=== PATIENT | male | born 1980 | race Caucasian/White ===

== ENCOUNTER 2017-09-14 15:47 | Inpatient (IN) ==
--- NOTE | 2017-09-14 16:20 | Emergency Department Note ---
Disposition Clinical Impression: Anemia Qualifiers: Anemia type: unspecified type Qualified Code(s): D64.9 - Anemia, unspecified Disposition: Admitted As Inpatient Condition: Fair Arrhythmia/Palpitations HPI - General Chief Complaint: ED Arrhythmia/Palpitations Stated Complaint: High heart rate Time Seen by Provider: 09/14/17 16:03 Source: patient Mode of arrival: ambulatory Limitations: no limitations Nursing Notes Reviewed: Yes Vital Signs Reviewed: Yes - History of Present Illness HPI Narrative: Pt is a 37 year old male with no significant past medical history presents with a complaint of palpitations. He reports that he has been experiencing rapid heart rate, palpitations, diaphoresis, dyspnea intermittently which seems to occur while walking. He has no previous history of this. Never had a cardiac workup. He denies chest pain, nausea, vomiting, changes in bowel movements but does admit to lightheadedness immediately after rising from a chair which resolves after a couple seconds. No family history of heart problems. He is currently asymptomatic at time of interview. Denies stimulant use, former smoker , alcohol use. He currently complains of a sinus infection. Pt Subjective Complaint: rapid heart beat, palpitations Onset (ago): week(s) Duration: intermittent Context: occurred during exertion Associated symptoms: Reports: shortness of breath. Denies: chest pain, near- syncope, nausea, vomiting, anxiety - Related Data Home Medications Medication Instructions Recorded Confirmed Buspirone HCl [Buspar] 15 mg PO BID 09/07/16 09/14/17 Citalopram [CeleXA] 20 mg PO DAILY 09/07/16 09/14/17 Allergies Allergy/AdvReac Type Severity Reaction Status Date / Time Penicillins [PCN] Allergy Rash Verified 09/14/17 15:48 All systems ED: reviewed and negative except as stated. Past Medical History - Past Medical History Medical history: Reports: non-contributory, other Psychiatric history: Reports: no psych history - Social History Smoking Status: Former smoker Smokeless Tobacco Status: No Alcohol use: Reports: none Drug use: Reports: none Physical Exam - General Limitations: no limitations General appearance: alert, in no apparent distress - Head Head exam: atraumatic, normocephalic, normal inspection - ENT ENT exam: normal exam, normal oropharynx, mucous membranes moist - Chest Chest inspection: Present: normal inspection, symmetric chest wall rise - Respiratory Respiratory exam: Present: normal lung sounds bilaterally - Cardiovascular Cardiovascular exam: Present: regular rate, normal rhythm, normal heart sounds - Extremities Exam Extremities exam: Present: normal inspection, full ROM. Absent: tenderness, pedal edema - Expanded Lower Extremity Exam Neurovascular/Tendon exam: Absent: motor deficit, sensory deficit, tendon deficit - Neurological Exam Neurological exam: Present: alert, oriented X3 - Psychiatric Psychiatric exam: Present: normal affect, normal mood - Skin Skin exam: Present: warm, dry, intact, normal color Course - Reevaluation(s) Reevaluation #1: Patient noted to be anemic with Hgb of 5.6. WIll perform stool guiac test and administer 2 units PRBC after type and screen. Time: 17:18 Reevaluation #2: Labs returned and significant for Hgb of 5.6. Stool guiac performed. Discussed admission with patient and he is agreeable. Time: 18:02 Vital Signs Temperature 99.5 F 09/14/17 15:48 Pulse Rate 94 09/14/17 15:48 Respiratory Rate 20 09/14/17 15:48 Blood Pressure 120/79 09/14/17 15:48 O2 Sat by Pulse Oximetry 100 09/14/17 15:48 Temperature 99.1 F 09/14/17 21:10 Pulse Rate 89 09/14/17 21:10 Respiratory Rate 16 09/14/17 21:10 Blood Pressure 124/82 09/14/17 21:10 O2 Sat by Pulse Oximetry 100 09/14/17 21:10 Oxygen Delivery Oxygen Delivery Room Air Arrhythmia/Palpitations - [facility] Narrative Medical decision making narrative: Patient presented with 4 weeks of palpitation on exertion. Patient found to be in sinus rhythm with rate of 96 on EKG. Hgb significant for 5.6 with hypochromic microcytic anemia. Labs otherwise normal. Patient will be admitted to medicine service for palpitations likely secondary to new onset anemia. Discussed with hospitalist and accepted for admission. - Lab Data Result diagrams: 09/14/17 16:24 09/14/17 16:24 Lab Results 09/14/17 09/14/17 09/14/17 Range/Units 16:24 16:24 16:24 WBC 6.3 (4.3-11.1) K/mcL RBC 2.90 L (4.19-5.50) M/mcL Hgb 5.6 L* (12.9-16.9) g/dL Hct 20.8 L (37.5-50.1) % MCV 71.7 L (83.0-100.0) fL MCH 19.3 L (28.0-33.3) pg MCHC 26.9 L (31.6-35.5) g/dL RDW 17.2 H (11.5-14.5) % Plt Count 312 (140-400) K/mcL MPV 10.8 (9.4-12.4) fL Immature Gran % 0.5 (0-4) % Seg Neutrophils % 76.3 % Lymphocytes % 10.3 % Monocytes % 7.7 % Eosinophils % 4.7 % Basophils % 0.5 % Neutrophils # 4.8 (1.6-8.9) K/mcL Lymphocytes # 0.7 (0.6-4.6) K/mcL Monocytes # 0.5 (0.0-1.3) K/mcL Eosinophils # 0.3 (0.0-0.6) K/mcL Basophils # 0.0 (0.0-0.2) K/mcL Nucleated RBCs/100 WBC 0.3 H (0) /100 WBC Polychromasia 1+ A (Not Present) Hypochromasia Present A (Not Present) Microcytosis Present A (Not Present) D-Dimer (0-500) ng/mLFEU Sodium 138 (136-145) mEq/L Potassium 4.2 (3.5-5.1) mEq/L Chloride 110 H (98-107) mEq/L Carbon Dioxide 22 L (23-29) mEq/L BUN 12 (6-20) mg/dL Creatinine 0.92 (0.70-1.30) mg/dL Est GFR ( Amer) > 60 (> 60) Est GFR (Non-Af Amer) > 60 (> 60) BUN/Creatinine Ratio 13 (6-26) Glucose 112 H (70-105) mg/dL Calculated Osmolality 287 (280-300) Calcium 8.9 (8.6-10.3) mg/dL Magnesium 2.1 (1.6-2.6) mg/dL Troponin I < 0.03 (< 0.04) ng/mL TSH 0.503 (0.340-5.600) mcIU/mL Specimen Rejected 09/14/17 09/14/17 Range/Units 16:24 17:35 WBC (4.3-11.1) K/mcL RBC (4.19-5.50) M/mcL Hgb (12.9-16.9) g/dL Hct (37.5-50.1) % MCV (83.0-100.0) fL MCH (28.0-33.3) pg MCHC (31.6-35.5) g/dL RDW (11.5-14.5) % Plt Count (140-400) K/mcL MPV (9.4-12.4) fL Immature Gran % (0-4) % Seg Neutrophils % % Lymphocytes % % Monocytes % % Eosinophils % % Basophils % % Neutrophils # (1.6-8.9) K/mcL Lymphocytes # (0.6-4.6) K/mcL Monocytes # (0.0-1.3) K/mcL Eosinophils # (0.0-0.6) K/mcL Basophils # (0.0-0.2) K/mcL Nucleated RBCs/100 WBC (0) /100 WBC Polychromasia (Not Present) Hypochromasia (Not Present) Microcytosis (Not Present) D-Dimer < 215 (0-500) ng/mLFEU Sodium (136-145) mEq/L Potassium (3.5-5.1) mEq/L Chloride (98-107) mEq/L Carbon Dioxide (23-29) mEq/L BUN (6-20) mg/dL Creatinine (0.70-1.30) mg/dL Est GFR ( Amer) (> 60) Est GFR (Non-Af Amer) (> 60) BUN/Creatinine Ratio (6-26) Glucose (70-105) mg/dL Calculated Osmolality (280-300) Calcium (8.6-10.3) mg/dL Magnesium (1.6-2.6) mg/dL Troponin I (< 0.04) ng/mL TSH (0.340-5.600) mcIU/mL Specimen Rejected Clotted - EKG Data EKG shows normal: sinus rhythm Rhythm: NSR Allen/QRS: normal Interpretation: normal EKG Attestation Statement - Attestation Attestation: I examined this patient and my medical decision-making was reviewed with the Resident Physician. I agree with the documented findings, disposition and treatment plan as described except to the extent set forth below. Acute GI hemorrhage. Patient has anemia. No evidence of active hemorrhage. Facial be transfused 2 units packed red blood cells and admitted for further evaluation and GI consultation. Critical care performed:35 Time is exclusive of separately billable procedures. Time includes: direct patient care, patient reassessment, coordination of patient care, interpretation of data (laboratory data, radiology data, and respiratory data), review of patient's medical records, medical consultation and documentation of patient care. Procedures included in critical care time:0 Procedures excluded from critical care time: 0
[2017-09-14 17:06] LABS: Basophils % 0.5 %; Eosinophils # 0.3 K/mcL (0.0-0.6); Eosinophils % 4.7 %; Hematocrit 20.8 % (37.5-50.1); Immature Granulocytes % 0.5 % (0-4); Lymphocytes # 0.7 K/mcL (0.6-4.6); Lymphocytes % 10.3 %; Mean Corpuscular HGB Conc 26.9 g/dL (31.6-35.5); Mean Corpuscular Hemoglobin 19.3 pg (28.0-33.3); Mean Corpuscular Volume 71.7 fL (83.0-100.0); Mean Platelet Volume 10.8 fL (9.4-12.4); Monocytes # 0.5 K/mcL (0.0-1.3); Monocytes % 7.7 %; Neutrophils # 4.8 K/mcL (1.6-8.9); Nucleated Red Blood Cells 0.3 /100 WBC (0); Platelet Count 312 K/mcL (140-400); Red Cell Distribution Width 17.2 % (11.5-14.5); Segmented Neutrophils % 76.3 %
[2017-09-14 17:13] LABS: Hemoglobin 5.6 g/dL (12.9-16.9)
[2017-09-14 17:36] LABS: Hypochromasia Present (Not Present); Microcytosis Present (Not Present); Polychromasia 1+ (Not Present)
[2017-09-14 17:37] LABS: Thyroid Stimulating Hormone 0.503 mcIU/mL (0.340-5.600)
[2017-09-14 17:50] LABS: BUN/Creatinine Ratio 13 (6-26); Blood Urea Nitrogen 12 mg/dL (6-20); Calcium 8.9 mg/dL (8.6-10.3); Carbon Dioxide 22 mEq/L (23-29); Chloride 110 mEq/L (98-107); Glucose 112 mg/dL (70-105); Magnesium 2.1 mg/dL (1.6-2.6); Osmolality,Calculated 287 (280-300); Potassium 4.2 mEq/L (3.5-5.1); Sodium 138 mEq/L (136-145); eGFR For African Americans > 60 (> 60); eGFR For Non-African Americans > 60 (> 60)
[2017-09-14] MEDS ORDERED: 0.9 % Sodium Chloride 500 ML ONE (20:10)
--- NOTE | 2017-09-14 20:46 | Internal Med History&Physical ---
Date of Encounter: 09/14/17 Time of Encounter: 20:43 Assessment and Plan (1) Iron deficiency anemia Current visit: Yes Status: Acute Patient with severe anemia with normal MCV very likely GI bleed or consult gastroenterology Qualifiers: Iron deficiency anemia type: chronic blood loss Qualified Code(s): D50.0 - Iron deficiency anemia secondary to blood loss (chronic) (2) GI bleed Current visit: Yes Status: Acute Severe anemia from GI bleed Qualifiers: GI bleed type/associated pathology: unspecified gastrointestinal hemorrhage type Qualified Code(s): K92.2 - Gastrointestinal hemorrhage, unspecified (3) Heart palpitations Current visit: Yes Status: Acute Palpitation very likely symptoms of severe anemia monitor shows sinus rhythm continue on telemetry (4) Obesity Current visit: Yes Status: Chronic Qualifiers: Obesity type: due to excess calories Obesity classification: adult class 2 (BMI 35 - 39.9) Serious obesity comorbidity presence: without serious comorbidity Body mass index: unspecified BMI Qualified Code(s): E66.09 - Other obesity due to excess calories Internal Medicine - H&P: HPI Chief complaint: severe anemia Admitted From: Emergency Dept Plans for Post Hospital Care: Home History of present illness: Mr. Sahu is a 37 year old male Patient with history of obesity no other significant medical problems patient presented emergency room due to symptoms of palpitation and heart beating fast also exertional shortness of breath and lightheadedness especially when she is tands from a sitting position denies any chest pain In the emergency room patient was in sinus rhythm blood pressure was normal BUT his hemoglobin was 5.6 with low MCV for about 70 patient was admitted for evaluation of GI bleed patient is unaware of blood in the stool no black stool he takes Motrin maybe once a week for headache and not on aspirin or any anticoagulation. Past Med Surg Social Fam HX - Past Medical History Medical history: non-contributory, other Psychiatric history: no psych history - Past Surgical History Surgical History: no surgical history - Social History Smoking Status: Former smoker Smokeless Tobacco Status: No (quit smoking 19 yrs ago) Alcohol use: none Drug use: none Internal Medicine - H&P: Meds Buspirone HCl [Buspar] 15 mg PO BID 09/07/16 [History] Citalopram [CeleXA] 20 mg PO DAILY 09/07/16 [History] 3 Allergy/AdvReac Type Severity Reaction Status Date / Time Penicillins [PCN] Allergy Rash Verified 09/14/17 15:48 All Systems PM: A 10-system review of systems was performed and is negative for pertinent findings except as documented above in the HPI. - Constitutional Constitutional: no chills, no fever(s), no night sweats - EENT Eyes: no change in vision, no discharge, no pain, no photophobia Ears: no ear discharge, no ear pain, no tinnitus Nose, mouth and throat: no dysphagia, no nasal discharge, no neck pain, no sore throat - Cardiovascular Cardiovascular ROS IM: lightheadedness, palpitations - Respiratory Respiratory: no cough, no dyspnea, no wheezing, no excessive phlegm production - Gastrointestinal Gastrointestinal: no abdominal pain, no diarrhea, no hematemesis, no hematochezia, no melena, no nausea, no vomiting - Musculoskeletal Musculoskeletal ROS IM: no numbness, no tingling - Integumentary Integumentary IM: no rash, no unusual bruising - Neurological Neurological ROS: no confusion, no convulsions, no focal weakness, no numbness, no tingling, no tremor(s) - Constitutional Vitals: Temp Pulse Resp BP Pulse Ox 98.6 F 84 18 126/87 99 09/14/17 18:43 09/14/17 18:43 09/14/17 18:43 09/14/17 18:43 09/14/17 18:43 - Head Head exam: Present: atraumatic, normocephalic - Eye Eye exam: Present: PERRL, conjuntiva pink, sclera anicteric Pupils: Present: PERRL - Neck Neck exam general surgery: Present: supple, trachea midline. Absent: lymphadenopathy - Respiratory Respiratory exam: Present: CTAB. Absent: accessory muscle use, rales, rhonchi, wheezes - Cardiovascular Cardiovascular exam: Present: RRR, +S1, +S2. Absent: diastolic murmur, gallop, rubs, systolic murmur - GI/Abdominal GI/Abdominal exam: Present: normal bowel sounds, soft, no peritoneal signs. Absent: distended, tenderness - Extremities Exam Extremities exam: Present: warm, radial pulses palpable and symmetrical. Absent : calf tenderness, cyanotic, pedal edema - Neurological Exam Neurological exam: Present: CN II-XII intact, oriented X3, no focal deficits. Absent: pronater drift, facial droop, speech deficit - Skin Skin exam: Present: dry, intact Internal Med - H&P Results - Labs CBC & Chem 7: 09/14/17 16:24 09/14/17 16:24
[2017-09-14] MEDS ORDERED: Naloxone 0.4 MG/ML INJ IVP PRN (20:50)
[2017-09-14] MEDS ORDERED: Acetaminophen 325 MG TABLET PO PRN (20:50)
[2017-09-15 02:38] LABS: Basophils % 0.3 %; Eosinophils # 0.3 K/mcL (0.0-0.6); Eosinophils % 3.6 %; Hematocrit 21.4 % (37.5-50.1); Immature Granulocytes % 0.4 % (0-4); Lymphocytes # 0.8 K/mcL (0.6-4.6); Lymphocytes % 11.3 %; Mean Corpuscular HGB Conc 27.6 g/dL (31.6-35.5); Mean Corpuscular Hemoglobin 20.2 pg (28.0-33.3); Mean Corpuscular Volume 73.3 fL (83.0-100.0); Mean Platelet Volume 10.6 fL (9.4-12.4); Monocytes # 0.5 K/mcL (0.0-1.3); Monocytes % 7.7 %; Neutrophils # 5.4 K/mcL (1.6-8.9); Platelet Count 304 K/mcL (140-400); Red Blood Count 2.92 M/mcL (4.19-5.50); Red Cell Distribution Width 18.2 % (11.5-14.5); Segmented Neutrophils % 76.7 %
[2017-09-15 02:43] LABS: Hemoglobin 5.9 g/dL (12.9-16.9)
[2017-09-15 03:16] LABS: Alanine Aminotransferase 8 Units/L (7-52); Albumin 3.7 g/dL (3.5-5.7); Albumin/Globulin Ratio 1.5 (1.1-2.2); Alkaline Phosphatase 59 Units/L (34-104); Aspartate Amino Transferase 14 Units/L (13-39); BUN/Creatinine Ratio 13 (6-26); Bilirubin,Total 0.4 mg/dL (0.3-1.0); Blood Urea Nitrogen 13 mg/dL (6-20); Calcium 8.5 mg/dL (8.6-10.3); Carbon Dioxide 26 mEq/L (23-29); Chloride 107 mEq/L (98-107); Cholesterol 125 mg/dL (< 200); Globulin 2.4 g/dL (2.4-3.5); Glucose 128 mg/dL (70-105); HDL Cholesterol 25 mg/dL (40-59); LDL Cholesterol,Calculated 80 mg/dL (0-99); Magnesium 2.1 mg/dL (1.6-2.6); Osmolality,Calculated 290 (280-300); Potassium 3.7 mEq/L (3.5-5.1); Sodium 139 mEq/L (136-145); Total Protein 6.1 g/dL (6.4-8.9); Triglycerides 99 mg/dL (< 150); eGFR For African Americans > 60 (> 60); eGFR For Non-African Americans > 60 (> 60)
[2017-09-15 03:43] LABS: Hypochromasia Present (Not Present); Platelet Estimate Normal (Normal)
[2017-09-15 03:44] LABS: Anisocytosis 1+ (Not Present)
--- NOTE | 2017-09-15 09:06 | Internal Med Progress Note ---
Date of Encounter: 09/15/17 Time of Encounter: 09:05 - Assessment and plan (1) Anemia Current Visit: Yes Status: Acute Assessment and plan: Microcytic anemia. Not bleeding. Check iron studies. Stools are negative for blood. Check post 2 units PRBCs transfusion CBC. Consult GI. Qualifiers: Anemia type: unspecified type Qualified Code(s): D64.9 - Anemia, unspecified (2) Febrile illness Current Visit: Yes Status: Acute Assessment and plan: No clear etiology. The patient's MAXIMUM TEMPERATURE was 100.9. This morning his temperature is 97.5. Chest x-ray with no infiltrates. Check blood cultures and urinalysis. (3) Obesity Current Visit: Yes Status: Chronic Assessment and plan: Counseled Qualifiers: Obesity type: due to excess calories Obesity classification: adult class 2 (BMI 35 - 39.9) Serious obesity comorbidity presence: without serious comorbidity Body mass index: unspecified BMI Qualified Code(s): E66.09 - Other obesity due to excess calories (4) DVT prophylaxis Current Visit: Yes Status: Acute Assessment and plan: SCDs - Subjective Interval history: Patient was seen and examined. Patient had a MAXIMUM TEMPERATURE of 100.9. Admitted with significant anemia causing symptoms that include shortness of breath and palpitations and dizziness. Was found to have hemoglobin of 5.6 for which 2 units of PRBCs were ordered. His stools were negative for occult bleeding. - Constitutional Vitals: Temp Pulse Resp BP Pulse Ox 97.5 F L 93 18 121/79 97 09/15/17 07:00 09/15/17 07:00 09/15/17 07:00 09/15/17 07:00 09/15/17 07:00 Exam: GEN: NAD CVS: RRR. S1, S2, No m/r/g RESP: CTAB ABD: Soft, NT, ND, +BS EXT: No edema. 2+ DP, No rashes NEURO: Nonfocal Internal Medicine: Result - Labs CBC & Chem 7: 09/15/17 08:55 09/15/17 02:18 Labs: Short CBC 09/15/17 Range/Units 02:18 WBC 7.0 (4.3-11.1) K/mcL Hgb 5.9 L* (12.9-16.9) g/dL Hct 21.4 L (37.5-50.1) % Plt Count 304 (140-400) K/mcL Neutrophils # 5.4 (1.6-8.9) K/mcL BMP 09/15/17 02:18 Sodium 139 Potassium 3.7 Chloride 107 Carbon Dioxide 26 BUN 13 Creatinine 1.02 Glucose 128 H Calcium 8.5 L Liver Function 09/15/17 Range/Units 02:18 Total Bilirubin 0.4 (0.3-1.0) mg/dL AST 14 (13-39) Units/L ALT 8 (7-52) Units/L Alkaline Phosphatase 59 (34-104) Units/L Albumin 3.7 (3.5-5.7) g/dL - ABG Interpretation ABG results: PT/INR, D-dimer D-Dimer < 215 ng/mLFEU (0-500) 09/14/17 16:24 Consult Discharge Plan - Plan Referrals: Otoniel Grider, [facility] [employer] [Primary Care Provider] -
[2017-09-15 09:09] LABS: Hematocrit 24.2 % (37.5-50.1); Hemoglobin 6.8 g/dL (12.9-16.9)
[2017-09-15 10:29] LABS: % Iron Saturation 3 % (20-55); Ferritin < 8 ng/ml (20-250); Iron 14 mcg/dL (65-175); Transferrin 340 mg/dL (203-362)
[2017-09-15 10:31] LABS: Folate 14.2 ng/mL (3.0-16.0)
--- NOTE | 2017-09-15 14:41 | Anesthesia Evaluation PreOp ---
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: Other (anxiety, depression) Other Medical History: Other (anemia) Anesthesia History: Past Anesthesia (none, no family hx of anes complications) Alcohol Use: none Drug use: none Medications and Allergies Buspirone HCl [Buspar] 15 mg PO BID 09/07/16 [History] Citalopram [CeleXA] 20 mg PO DAILY 09/07/16 [History] 3 Allergy/AdvReac Type Severity Reaction Status Date / Time Penicillins [PCN] Allergy Rash Verified 09/14/17 15:48 - Meds/Allergy Pre-op Review Medications Reviewed: Yes Allergies Reviewed: Yes Beta Blockers on Current Med List: No Anesthesia Results - Labs 09/15/17 08:55 09/15/17 02:18 Anesthesia Exam Vital Signs/O2 Sat, Most Current Temp Pulse Resp BP Pulse Ox 97.9 F 86 20 111/80 99 09/15/17 14:25 09/15/17 14:25 09/15/17 14:25 09/15/17 14:25 09/15/17 14:25 Height: 1.8m Weight: 116kg NPO (# of Hours): >8 Pain Scale: 0 Pain Scale Used: Numeric (1 - 10) - HEENT Pupil (Motor): Pupils equal, EOMI Mallampati: II Oral Opening: Greater than 3 - FILM TECHNICIAN LOC: Oriented FILM TECHNICIAN Motor: Normal RUE, Normal LUE, Normal RLE, Normal LLE, Normal Face FILM TECHNICIAN Sensory: Normal: RUE, LUE, RLE, LLE, Face - Cardiac Rhythm: Regular - Pulmonary Breath Sounds: bilateral Clear Respiratory Effort: Symmetrical Anesthesia Assess/Plan ASA Score: 2 Modified Celestina Scale for Level of Consciousness: Cooperative, oriented, and tranquil Anesthetic Plan: MAC Monitoring Plan: Standard Monitors Recovery Plan: PACU
[2017-09-15] MEDS ORDERED: *HR* Propofol 200 MG/20 ML VIAL IVP ONE (14:55)
[2017-09-15] MEDS ORDERED: SODIUM CHLORIDE/NAHCO3/KCL/PEG 4,000 ML SOLN.RECON PO ONE (15:18)
--- NOTE | 2017-09-15 15:34 | Anesthesia Evaluation Post Op ---
Date of Encounter: 09/15/17 Time of Encounter: 15:33 - Vital Signs Vital Signs: Vital Signs/O2 Sat, Most Current Temp Pulse Resp BP Pulse Ox 97.9 F 86 20 111/80 99 09/15/17 14:25 09/15/17 14:25 09/15/17 14:25 09/15/17 14:25 09/15/17 14:25 - Lungs Lungs: Clear Ascult./Percussion - Airway Airway: Non-obstructed - Cardiovascular Regular Rate - Mental Status Mental Status: Alert & Oriented, Answers Appropriately - Pain Pain Scale: 0 Pain Scale used: Numeric (1 - 10) - Nausea Vomiting Nausea Vomiting: Not Present - Hydration Hydration: Tolerates oral liquids - Discharge PostOp Status: Transfer Patient to floor Attestation: I have assessed this patient and find they meet discharge criteria.
--- NOTE | 2017-09-15 16:50 | Gastroenterology Consult Note ---
<Cassie Rodriguez - Last Filed: 09/15/17 16:43> Date of Encounter: 09/15/17 Time of Encounter: 13:00 - Assessment and plan (1) Anemia Current Visit: Yes Status: Acute Assessment and plan: Pt who denies past medical history who presents with anemia 5.6. EGD today showed esphagitis, gastritis and og erosions, continue PPI, will prep for colonoscopy tomorrow if negative will need fundoplication as out pt Qualifiers: Anemia type: unspecified type Qualified Code(s): D64.9 - Anemia, unspecified (2) GI bleed Current Visit: Yes Status: Acute Assessment and plan: EGD/colon continue PPI Qualifiers: GI bleed type/associated pathology: unspecified gastrointestinal hemorrhage type Qualified Code(s): K92.2 - Gastrointestinal hemorrhage, unspecified - Time Spent With Patient Total time spent is greater than 50% in coordination of care (as documented) at patient's floor/unit and/or counseling patient: GI History of Present Illness - Data of Consult Patient: new to practice Consult date: 09/15/17 Requesting Physician: Anitha Beal MD - Consult Narrative Reason for consult: anemia History of present illness: Mr. Sahu is a 37 year old male who denies any chronic medical conditions. He presented with complaints of his heart racing and shortness of breath on exertion. He was found to have a Hgb 5.6. He denies any nausea, vomiting, diarrhea, constipation, bloody or tarry stools. Stool was negative for occult blood. He admits to occasional GERD symptoms. He states he uses motrin on occasion but denies any chronic NSAIDS, blood thinners. He denies any former endoscopy procedures. Past Med Surg Social Fam HX - Past Medical History Medical history: non-contributory, other Psychiatric history: no psych history - Past Surgical History Surgical History: no surgical history - Social History Smoking Status: Former smoker Smokeless Tobacco Status: No Alcohol use: none Drug use: none Review of Systems: GI: as per [place] GENERAL: denies fever or chills EYES: denies yellow discoloration ENT: denies pain with swallowing or difficulty swallowing CARDIO: palpitations see HPI RESP: Shortness of breath with exertion : denies change in color of urine NEURO: weakness HEME: Denies any bruising MS: denies joint pain, joint swelling or back pain. DERM: denies rash or itching PSYCH: history of anxiety or depression - Constitutional Vitals: Temp Pulse Resp BP Pulse Ox 97.9 F 79 17 126/90 95 09/15/17 14:25 09/15/17 15:00 09/15/17 15:00 09/15/17 15:00 09/15/17 15:00 Exam: CONSTITUTIONAL:~alert, no acute distress.~HEAD:~normocephalic.~EYES:~no jaundice.~NECK:~no obvious swelling.~HEART:~regular rate and rhythm, no murmurs. ~LUNGS:~bilateral good air entry.~ABDOMEN:~non distended, soft, nontender, no masses palpable, no organomegaly, obesity.~RECTAL EXAM:~Deferred.~EXTREMITIES:~ no clubbing, cyanosis or edema.~SKIN:~no stigmata of chronic liver disease.~ NEUROLOGIC:~no obvious focal defect.~~~~ Results - Labs CBC & Chem 7: 09/15/17 08:55 09/15/17 02:18 Labs: Last Result Calcium 8.5 mg/dL (8.6-10.3) L 09/15/17 02:18 Iron 14 mcg/dL (65-175) L 09/15/17 09:22 % Saturation 3 % (20-55) L 09/15/17 09:22 Transferrin 340 mg/dL (203-362) 09/15/17 09:22 Ferritin < 8 ng/ml (20-250) L 09/15/17 09:22 Troponin I < 0.03 ng/mL (< 0.04) 09/14/17 16:24 Triglycerides 99 mg/dL (< 150) 09/15/17 02:18 Vitamin B12 252 pg/mL (250-1100) 09/15/17 09:22 Folate 14.2 ng/mL (3.0-16.0) 09/15/17 09:22 Stool Occult Blood Negative (Negative) 09/14/17 18:06 Entire Visit Hgb 6.8 g/dL (12.9-16.9) L 09/15/17 08:55 Hct 24.2 % (37.5-50.1) L 09/15/17 08:55 Ferritin < 8 ng/ml (20-250) L 09/15/17 09:22 Total Bilirubin 0.4 mg/dL (0.3-1.0) 09/15/17 02:18 AST 14 Units/L (13-39) 09/15/17 02:18 ALT 8 Units/L (7-52) 09/15/17 02:18 Folate 14.2 ng/mL (3.0-16.0) 09/15/17 09:22 - ABG ABG results: PT/INR, D-dimer D-Dimer < 215 ng/mLFEU (0-500) 09/14/17 16:24 Consult Discharge Plan - Plan Referrals: Otoniel Grider, [employer] [Primary Care Provider] - <Theresa Zarate - Last Filed: 09/15/17 21:20> Date of Encounter: 09/15/17 Time of Encounter: 14:00 - Time Spent With Patient Total time spent is greater than 50% in coordination of care (as documented) at patient's floor/unit and/or counseling patient: GI History of Present Illness - Data of Consult Requesting Physician: Anitha Beal MD - Consult Narrative History of present illness: Mr. Sahu is a 37 year old male - Constitutional Vitals: Temp Pulse Resp BP Pulse Ox 98.3 F 75 16 124/90 98 09/15/17 19:51 09/15/17 19:51 09/15/17 19:51 09/15/17 19:51 09/15/17 20:54 Results - Labs CBC & Chem 7: 09/15/17 08:55 09/15/17 02:18 Labs: Last Result Calcium 8.5 mg/dL (8.6-10.3) L 09/15/17 02:18 Iron 14 mcg/dL (65-175) L 09/15/17 09:22 % Saturation 3 % (20-55) L 09/15/17 09:22 Transferrin 340 mg/dL (203-362) 09/15/17 09:22 Ferritin < 8 ng/ml (20-250) L 09/15/17 09:22 Troponin I < 0.03 ng/mL (< 0.04) 09/14/17 16:24 Triglycerides 99 mg/dL (< 150) 09/15/17 02:18 Vitamin B12 252 pg/mL (250-1100) 09/15/17 09:22 Folate 14.2 ng/mL (3.0-16.0) 09/15/17 09:22 Stool Occult Blood Negative (Negative) 09/14/17 18:06 Entire Visit Hgb 6.8 g/dL (12.9-16.9) L 09/15/17 08:55 Hct 24.2 % (37.5-50.1) L 09/15/17 08:55 Ferritin < 8 ng/ml (20-250) L 09/15/17 09:22 Total Bilirubin 0.4 mg/dL (0.3-1.0) 09/15/17 02:18 AST 14 Units/L (13-39) 09/15/17 02:18 ALT 8 Units/L (7-52) 09/15/17 02:18 Folate 14.2 ng/mL (3.0-16.0) 09/15/17 09:22 - ABG ABG results: PT/INR, D-dimer D-Dimer < 215 ng/mLFEU (0-500) 09/14/17 16:24 - Attending Attestation I examined this patient and my medical decision-making was reviewed with the [employer]. I agree with the documented findings, disposition and treatment plan as described except to the extent set forth below. Pt with severe ZAHRAA. No overt bleeding, EGD with learge hiatel hernia and og erosions. Colon in am. BID PPI. Pt does has severe GERD symptoms. If Colon negative then BID PPI and fundoplication
[2017-09-15] MEDS: Iron Sucrose Complex 200 MG in 0.9 % Sodium Chloride 100 ML IVPB SCH (17:27)
[2017-09-15 22:57] LABS: Bilirubin,Urine Negative (Negative); Blood,Urine Negative (Negative); Clarity,Urine Clear (Clear); Color,Urine Yellow (Yellow); Glucose,Urine (UA) Normal (Normal); Ketones,Urine Negative (Negative); Leukocyte Esterase,Urine Negative (Negative); Nitrite,Urine Negative (Negative); Protein,Urine Negative (Neg-Trace); Specific Gravity,Urine 1.012 (1.010-1.025); Urobilinogen,Urine Normal (Normal)
[2017-09-16 06:06] LABS: Hematocrit 24.6 % (37.5-50.1); Mean Corpuscular HGB Conc 28.5 g/dL (31.6-35.5); Mean Corpuscular Hemoglobin 21.1 pg (28.0-33.3); Mean Corpuscular Volume 74.3 fL (83.0-100.0); Mean Platelet Volume 10.8 fL (9.4-12.4); Nucleated Red Blood Cells 0.3 /100 WBC (0); Platelet Count 306 K/mcL (140-400); Red Blood Count 3.31 M/mcL (4.19-5.50); Red Cell Distribution Width 18.3 % (11.5-14.5)
[2017-09-16 06:26] LABS: BUN/Creatinine Ratio 12 (6-26); Blood Urea Nitrogen 11 mg/dL (6-20); Calcium 8.8 mg/dL (8.6-10.3); Carbon Dioxide 23 mEq/L (23-29); Chloride 110 mEq/L (98-107); Glucose 97 mg/dL (70-105); Osmolality,Calculated 289 (280-300); Sodium 140 mEq/L (136-145); eGFR For African Americans > 60 (> 60); eGFR For Non-African Americans > 60 (> 60)
[2017-09-16 06:50] LABS: Anisocytosis 1+ (Not Present); Hypochromasia Present (Not Present); Platelet Estimate Normal (Normal)
[2017-09-16 08:20] LABS: Eosinophils # 0.3 K/mcL (0.0-0.6); Lymphocytes # 1.2 K/mcL (0.6-4.6); Neutrophils # 5.8 K/mcL (1.6-8.9)
[2017-09-16] MEDS: Iron Sucrose Complex 200 MG in 0.9 % Sodium Chloride 100 ML IVPB SCH (09:45)
[2017-09-16] MEDS ORDERED: 0.9 % Sodium Chloride 250 ML ONE (12:41)
--- NOTE | 2017-09-16 12:51 | Internal Med Progress Note ---
Date of Encounter: 09/16/17 Time of Encounter: 12:49 - Assessment and plan (1) Anemia Current Visit: Yes Status: Acute Assessment and plan: Microcytic anemia. Not bleeding. Iron studies with iron deficiency anemia. Started IV iron. Colonoscopy today. Transfuse another unit this morning. GI Is following. Continue PPI.. Qualifiers: Anemia type: unspecified type Qualified Code(s): D64.9 - Anemia, unspecified (2) Febrile illness Current Visit: Yes Status: Acute Assessment and plan: No clear etiology. Resolved. Cultures have been negative. Not going to start any antibiotics. (3) Obesity Current Visit: Yes Status: Chronic Assessment and plan: Counseled Qualifiers: Obesity type: due to excess calories Obesity classification: adult class 2 (BMI 35 - 39.9) Serious obesity comorbidity presence: without serious comorbidity Body mass index: unspecified BMI Qualified Code(s): E66.09 - Other obesity due to excess calories (4) DVT prophylaxis Current Visit: Yes Status: Acute Assessment and plan: SCDs - Subjective Interval history: Patient was seen and examined. No acute events. Patient transfused 2 units and his hemoglobin is 7 morning. He is getting another unit this morning. Seen by GI with plans for colonoscopy. He had an EGD which showed some gastritis and esophagitis and og erosions. Admitted with significant anemia causing symptoms that include shortness of breath and palpitations and dizziness. Was found to have hemoglobin of 5.6 for which 2 units of PRBCs were ordered. His stools were negative for occult bleeding. - Constitutional Vitals: Temp Pulse Resp BP Pulse Ox 98.1 F 96 18 132/91 97 09/16/17 07:00 09/16/17 07:00 09/16/17 07:00 09/16/17 07:00 09/16/17 07:00 Exam: GEN: NAD CVS: RRR. S1, S2, No m/r/g RESP: CTAB ABD: Soft, NT, ND, +BS EXT: No edema. 2+ DP, No rashes NEURO: Nonfocal Internal Medicine: Result - Labs CBC & Chem 7: 09/16/17 05:31 09/16/17 05:31 Labs: Short CBC 09/16/17 Range/Units 05:31 WBC 7.2 (4.3-11.1) K/mcL Hgb 7.0 L (12.9-16.9) g/dL Hct 24.6 L (37.5-50.1) % Plt Count 306 (140-400) K/mcL Neutrophils # 5.8 (1.6-8.9) K/mcL BMP 09/16/17 05:31 Sodium 140 Potassium 4.0 Chloride 110 H Carbon Dioxide 23 BUN 11 Creatinine 0.93 Glucose 97 Calcium 8.8 Urine 09/15/17 Range/Units 22:32 Urine Color Yellow (Yellow) Urine Clarity Clear (Clear) Urine pH 6.0 (5.0-8.0) pH Units Ur Specific [place] 1.012 (1.010-1.025) Urine Protein Negative (Neg-Trace) mg/dL Urine Glucose (UA) Normal (Normal) mg/dL - ABG Interpretation ABG results: PT/INR, D-dimer D-Dimer < 215 ng/mLFEU (0-500) 09/14/17 16:24 Consult Discharge Plan - Plan Referrals: Otoniel Grider, CERAM[employer] ENGINEER [Primary Care Provider] -
--- NOTE | 2017-09-16 19:15 | Anesthesia Evaluation PreOp ---
Date of Encounter: 09/16/17 Time of Encounter: 19:13 - Past History Planned Operation: colonoscopy Cardiac History: Other (palpitations) Pulmonary History: Denies Any Significant HX ACUTE DIALYSIS REGISTERED NURSE History: Other (axniety/depression) Other Medical History: Bleeding (GI bleed), Other (anemia) Anesthesia History: No Prior Anesthetic Complications, Past Anesthesia (EGD) Alcohol Use: none Drug use: none Medications and Allergies Buspirone HCl [Buspar] 15 mg PO BID 09/07/16 [History] Citalopram [CeleXA] 20 mg PO DAILY 09/07/16 [History] 3 Allergy/AdvReac Type Severity Reaction Status Date / Time Penicillins [PCN] Allergy Rash Verified 09/14/17 15:48 - Meds/Allergy Pre-op Review Medications Reviewed: Yes Allergies Reviewed: Yes Beta Blockers on Current Med List: No Anesthesia Results - Labs 09/16/17 05:31 09/16/17 05:31 - Imaging EKG: report reviewed, image reviewed (telemetry strip shows NSR) Anesthesia Exam Last Vital Signs Temp 98.6 F 09/16/17 18:30 Pulse 78 09/16/17 18:30 Resp 16 09/16/17 18:30 BP 127/95 09/16/17 18:30 Pulse Ox 95 09/16/17 18:30 Weight: 114 kg NPO (# of Hours): > 8 hrs - HEENT Pupil (Motor): Pupils equal, EOMI Mallampati: II Teeth: Normal Oral Opening: Greater than 3 - ACUTE DIALYSIS REGISTERED NURSE LOC: Oriented ACUTE DIALYSIS REGISTERED NURSE Motor: Normal RUE, Normal LUE, Normal RLE, Normal LLE, Normal Face - Cardiac Rhythm: Regular Murmur: None - Pulmonary Breath Sounds: bilateral Clear Respiratory Effort: Symmetrical Anesthesia Assess/Plan ASA Score: 2 Modified Celestina Scale for Level of Consciousness: Cooperative, oriented, and tranquil Anesthetic Plan: MAC Monitoring Plan: Standard Monitors Recovery Plan: PACU
[2017-09-16] MEDS ORDERED: Propofol 500 MG/50 ML INFUS..BTL ONE (19:49)
[2017-09-16] MEDS ORDERED: Lidocaine -MPF 2% 2 ML VIAL ONE (19:49)
[2017-09-16] MEDS ORDERED: *HR* Propofol 200 MG/20 ML VIAL IVP ONE (19:49)
--- NOTE | 2017-09-16 20:37 | Anesthesia Evaluation Post Op ---
Date of Encounter: 09/16/17 Time of Encounter: 20:37 - Vital Signs Vital Signs: Last Vital Signs Temp 98.6 F 09/16/17 18:30 Pulse 78 09/16/17 18:30 Resp 16 09/16/17 18:30 BP 127/95 09/16/17 18:30 Pulse Ox 95 09/16/17 18:30 - Lungs Lungs: Clear Ascult./Percussion - Airway Airway: Non-obstructed - Cardiovascular Regular Rate - Mental Status Mental Status: Alert & Oriented, Answers Appropriately - Pain Pain Scale: 1 - Nausea Vomiting Nausea Vomiting: Not Present - Hydration Hydration: NPO - Discharge PostOp Status: Transfer Patient to floor
[2017-09-17 03:53] LABS: Basophils % 0.4 %; Eosinophils # 0.4 K/mcL (0.0-0.6); Eosinophils % 4.2 %; Hematocrit 28.4 % (37.5-50.1); Hemoglobin 8.4 g/dL (12.9-16.9); Immature Granulocytes % 0.8 % (0-4); Lymphocytes # 1.3 K/mcL (0.6-4.6); Lymphocytes % 14.4 %; Mean Corpuscular HGB Conc 29.6 g/dL (31.6-35.5); Mean Corpuscular Hemoglobin 22.3 pg (28.0-33.3); Mean Corpuscular Volume 75.3 fL (83.0-100.0); Monocytes # 0.8 K/mcL (0.0-1.3); Monocytes % 8.5 %; Neutrophils # 6.6 K/mcL (1.6-8.9); Nucleated Red Blood Cells 1.5 /100 WBC (0); Platelet Count 325 K/mcL (140-400); Red Blood Count 3.77 M/mcL (4.19-5.50); Red Cell Distribution Width 18.8 % (11.5-14.5); Segmented Neutrophils % 71.7 %
[2017-09-17 04:42] LABS: BUN/Creatinine Ratio 16 (6-26); Blood Urea Nitrogen 16 mg/dL (6-20); Calcium 8.8 mg/dL (8.6-10.3); Carbon Dioxide 24 mEq/L (23-29); Chloride 108 mEq/L (98-107); Glucose 118 mg/dL (70-105); Osmolality,Calculated 292 (280-300); Potassium 3.7 mEq/L (3.5-5.1); Sodium 140 mEq/L (136-145); eGFR For African Americans > 60 (> 60); eGFR For Non-African Americans > 60 (> 60)
[2017-09-17] MEDS: Iron Sucrose Complex 200 MG in 0.9 % Sodium Chloride 100 ML IVPB SCH (09:29)
[2017-09-17 10:16] VITALS: BP 111/81
--- NOTE | 2017-09-17 11:10 | Discharge Summary ---
Date of Encounter: 09/17/17 Time of Encounter: 11:06 - Discharge Diagnosis (1) Anemia Priority: Primary Status: Acute Qualifiers: Anemia type: unspecified type Qualified Code(s): D64.9 - Anemia, unspecified (2) Febrile illness Priority: Primary Status: Acute (3) Obesity Priority: Secondary Status: Chronic Qualifiers: Obesity type: due to excess calories Obesity classification: adult class 2 (BMI 35 - 39.9) Serious obesity comorbidity presence: without serious comorbidity Body mass index: unspecified BMI Qualified Code(s): E66.09 - Other obesity due to excess calories (4) Iron deficiency anemia Priority: Primary Status: Acute Qualifiers: Iron deficiency anemia type: unspecified iron deficiency Qualified Code(s) : D50.9 - Iron deficiency anemia, unspecified - Discharge Medications Prescriptions: Ferrous Sulfate 325 mg PO BIDWM #60 tablet Omeprazole [PriLOSEC] 20 mg PO DAILY@0630 #30 capsule.dr Bui Medications: Buspirone HCl [Buspar] 15 mg PO BID 09/07/16 [History] Citalopram [CeleXA] 20 mg PO DAILY 09/07/16 [History] Ferrous Sulfate 325 mg PO BIDWM #60 tablet 09/17/17 [Rx] Omeprazole [PriLOSEC] 20 mg PO DAILY@0630 #30 capsule. 09/17/17 [Rx] Allergies/Adverse Reactions: 3 Allergy/AdvReac Type Severity Reaction Status Date / Time Penicillins [PCN] Allergy Rash Verified 09/14/17 15:48 Date of admission: 09/14/17 17:43 Primary care physician: Otoniel Grider CNP Consults: 09/14/17 20:52 Consult to Physician [CONS] Routine Consulting Provider: Theresa Zarate Reason for Consult: gi bleed, severe anemia Time Notified: 20:52 Call Completed: No - Patient Status Disposition: Home, Self-Care Overall status at discharge: patient is progressing back to baseline - Discharge Instructions Instructions: Gastritis (DC), Gastrointestinal Bleeding (DC), Colonoscopy (DC) , Iron Deficiency Anemia (DC), Anemia (GEN) Follow Up With: Otoniel Grider CNP [Primary Care Provider] - Woodrow Crouch MD [Partnered Physician] - (2 weeks) - Diet and Activity Activity: increase activity as tolerated Diet: regular diet Hospital course: Mr. Sahu is a 37 year old male with history of obesity and no other significant medical problems who presented to the emergency room due to symptoms of palpitation and exertional shortness of breath and lightheadedness especially when he stands from a sitting position . The patient denied any chest pain. In the emergency department the patient was in sinus rhythm with normal blood pressure. Hemoglobin is fine to be 5.6 with a low MCV. He was admitted and received a total of 3 units PRBCs. Was seen by GI. He had negative FOBT. EGD and colonoscopy were mostly unremarkable except for some gastritis and a large hiatal hernia. He has found to have severe iron deficiency anemia and received 2 doses of IV Venofer. He was started on oral supplements. He eventually will need a capsule Study. He was discharged to follow-up with his primary care physician as well as GI. On his second day of admission the patient had a temperature 100.9 and his workup was negative for any infectious etiology. He was not started on any antibiotics and was not discharged on antibiotics either. - Time Spent with Patient Total time spent providing and/or coordinating discharge services: Greater than 30 minutes - Constitutional Vitals: Temp Pulse Resp BP Pulse Ox 97.8 F 84 16 111/81 99 09/17/17 09:00 09/17/17 09:00 09/17/17 09:00 09/17/17 09:00 09/17/17 09:00 Exam: GEN: NAD CVS: RRR. S1, S2, No m/r/g RESP: CTAB ABD: Soft, NT, ND, +BS EXT: No edema. 2+ DP, No rashes NEURO: Nonfocal
--- NOTE | 2017-09-21 01:56 | Electrocardiograph Report ---
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
== END 2017-09-17 13:00 | disposition home or self-care (01) | DRG 812 ==
LOC: EMEROO 15:47 → 2NENU 17:43 → SUATTDRO 17:43 → 2NENU 18:28
PROVIDERS: ADMIT Internal Medicine; ATTEND Internal Medicine Cardiovascular Disease